=== PATIENT | female | born 1955 | race Caucasian/White ===

== ENCOUNTER 2020-12-03 12:19 | Emergency (ER) | payer MEDICAID ==
[~2020-12-03] VITALS: Ht 165.1 cm; Wt 118.4 kg
[~2020-12-03 12:19] MED LIST: CLOT15CR73 TP; DIL100L PO
[2020-12-03 13:10] LABS: CLARITY,URINE CLOUDY (Clear); COLOR,URINE AMBER (Yellow); GLUCOSE, URINE NEGATIVE (Neg); KETONES,URINE TRACE mg/dl (Neg); LEUKOCYTE ESTERASE ,URINE NEGATIVE (Neg); NITRITES, URINE POSITIVE (Neg); OCCULT BLOOD,URINE LARGE (Neg); PROTEIN,URINE 100 mg/dl (Neg)
[2020-12-03 13:17] LABS: UA COLLECTION TYPE CLN CATCH MIDSTREAM
[2020-12-03 13:18] LABS: RBC,URINE TNTC /HPF (0-2)
[2020-12-03 13:21] LABS: BASOPHILS # (AUTO) 0.1 X10'3 (0-0.2); BASOPHILS % (AUTO) 0.8 % (0-1); EOSINOPHILS # (AUTO) 0.1 X10'3 (0-0.9); EOSINOPHILS % (AUTO) 0.8 % (0-6); HEMATOCRIT 42.8 % (35.0-45.0); HEMOGLOBIN 14.5 g/dl (12.0-16.0); LYMPHOCYTES # (AUTO) 1.7 X10'3 (1.1-4.8); LYMPHOCYTES % (AUTO) 17.5 % (21-51); MEAN CORPUSCULAR HEMOGLOBIN 29.8 PG (27.0-31.0); MEAN CORPUSCULAR HGB CONC 33.8 g/dL (33.0-36.5); MEAN CORPUSCULAR VOLUME 88.1 FL (78-98); MEAN PLATELET VOLUME 10.6 FL (7.4-10.4); MONOCYTES % (AUTO) 10.4 % (2-12); NEUTROPHILS # (AUTO) 6.9 X10'3 (1.8-7.7); NEUTROPHILS % (AUTO) 70.5 % (42-75); PLATELET COUNT 193 X10'3 (140-440); RED BLOOD COUNT 4.86 X10'6 (4.20-5.60); WHITE BLOOD COUNT 9.8 X10'3 (4.5-11.0)
[2020-12-03 13:23] LABS: BACTERIA,URINE 3+ /HPF (Neg)
[2020-12-03 13:24] LABS: SQUAMOUS EPITHELIAL CELL,UR MODERATE /LPF (FEW)
[2020-12-03] MEDS ORDERED: metoclopramide 5 mg/ml inj IV ONE (13:25)
[2020-12-03] MEDS ORDERED: normal saline 1000ML IV soln IVB ONE (13:30)
[2020-12-03 13:36] LABS: ALANINE AMINOTRANSFERASE 26 U/L (12-78); ALBUMIN 3.7 G/DL (3.4-5.0); ALBUMIN/GLOBULIN RATIO 0.9 (1.1-1.5); ALKALINE PHOSPHATASE 143 IU/L (46-116); AMYLASE 61 U/L (25-115); ANION GAP 8 (8-16); ASPARTATE AMINO TRANSFERASE 17 U/L (10-37); BILIRUBIN,TOTAL 0.3 MG/DL (0.1-1.0); BLOOD UREA NITROGEN 14 MG/DL (7-18); BUN/CREATININE RATIO 13.9 (6.6-38.0); CHLORIDE 105 MMOL/L (99-107); CREATININE 1.01 MG/DL (0.40-0.90); LIPASE 88 U/L (73-393); POTASSIUM 4.1 MMOL/L (3.5-5.1); SODIUM 141 MMOL/L (135-145); TOTAL CARBON DIOXIDE 27.6 MMOL/L (24-32); TOTAL PROTEIN 7.9 G/DL (6.4-8.2); eGFR 55 ML/MIN
[2020-12-03 13:37] LABS: GLUCOSE 132 MG/DL (70-104)
[2020-12-03] MEDS ORDERED: morphine 10mg/ml inj. IV ONE (14:20)
[2020-12-03] MEDS ORDERED: morphine 4 MG/ML inj SYRINge IV ONE (14:25)
[2020-12-03] MEDS ORDERED: iohexol 300mg/ml 100ml inj. ONE (14:26)
[2020-12-03 14:59] VITALS: BP 168/80
[2020-12-03] MEDS: MESSAGE TO NURSING PO NR ×2 (14:59→15:01)
[2020-12-03] MEDS ORDERED: CEFD300C3 PO (15:07)
[2020-12-03] MEDS ORDERED: ONDA4TAB12 PO (15:07)
[2020-12-03] MEDS ORDERED: OXYC-145 PO (15:07)
== END 2020-12-03 15:42 | disposition home or self-care (01) ==
LOC: ER 12:19
DX: N20.0 Calculus of kidney (principal); N39.0 Urinary tract infection, site not specified; E11.9 Type 2 diabetes mellitus without complications; Z90.49 Acquired absence of other specified parts of digestive tract; Z88.8 Allergy status to other drugs, medicaments and biological substances; Z79.899 Other long term (current) drug therapy
CPT/HCPCS: 36415; 74177; 80053; 81001; 82150; 83690; 85025; 87088; 96374; 96375; 99285; J2270; J2765; J7030; Q9967; 74176